=== PATIENT | female | born 2000 | race Caucasian/White ===

== ENCOUNTER 2022-12-05 09:35 | Observation (INO) ==
--- NOTE | 2022-11-28 14:07 | Anesthesiology Consultation ---
Date of Service November 28, 2022 Assessment & Plan (1) Encounter for pre-operative examination: Chart Review Chart Review: Acceptable Risk for Surgery and Patient NOT seen in Pre Admission Testing - Check test AM DOS (per nursing assessment- patient with mullerian agenesis - will leave to anesthesiologist discretion if preg test needs cancelled DOS) - Aprepitant ordered by surgeon- patient taking prior to arrival to hospital on DOS -COVID screening: Per PAT nursing assessment on 11/28/22. Pt with congestion and runny nose- tested negative for Covid 11/20/22. Symptoms as of 11/28/22 significantly improved. No known COVID-19 positive contacts or current COVID-19 related symptoms. Travel screen negative. Patient is NOT vaccinated for Covid. At surgeon discretion if preop Covid testing being done. From anesthesia perspective, Covid test NOT needed prior to surgery secondary to patient being done as outpatient (surgery will be at least 15 days from symptom onset, pt tested Covid negative at work 11/20/22, and symptoms improved) History Surgery Operation Date: 12/05/22 11:30 Proposed Procedures p Bilateral Breast Reduction - Jayne Cisneros MD Height/Weight Height: 5 ft 3 in Weight: 90.265 kg Allergies Allergy/AdvReac Type Severity Reaction Status Date / Time No Known Allergies Allergy Verified 11/28/22 12:46 Medications Home Medications Medication Instructions Recorded Confirmed Last Taken aprepitant 40 mg capsule 40 mg PO DAILY 1 day #1 cap 11/24/22 11/28/22 Unknown oxycodone-acetaminophen 5 mg-325 1 tab PO Q4H PRN pain 3 days #18 11/24/22 11/28/22 Unknown mg tablet (Percocet) tabs Past Medical History Medical History Hx of gastroesophageal reflux (GERD) has only taken OTC meds prn-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
[~2022-12-05 09:35] MED LIST: ACETAMINOPHEN 1000 MG/100 ML IV IV ONE; FAMOTIDINE/PF 20 MG/2 ML VIAL IV ONE; LACTATED RINGER'S 1,000 ML IV SCH; ceFAZolin 2000MG 2,000 MG/15 ML SYR IV SCH
[2022-12-05] MEDS ORDERED: MIDAZOLAM HCL 1 MG/ML 2ML VIAL ONE (09:44)
[2022-12-05] MEDS ORDERED: ROCURONIUM BROMIDE 10 MG/ML 5 ML VIAL IV ONE ×2 (09:45→13:32)
[2022-12-05] MEDS ORDERED: ONDANSETRON INJ 2 MG/ML 2 ML VIAL ONE (09:45)
[2022-12-05] MEDS ORDERED: PROPOFOL IV EMULSION 10 MG/ML 20 ML VIAL IV ONE (09:45)
[2022-12-05] MEDS ORDERED: fentaNYL citrate PF 100 MCG/2 ML VIAL ONE ×2 (09:45→14:15)
[2022-12-05] MEDS ORDERED: METOCLOPRAMIDE HCL INJ 5 MG/ML 2 ML VIAL ONE (09:45)
[2022-12-05] MEDS ORDERED: DEXAMETHASONE SOD INJ 4 MG/ML VIAL ONE ×2 (09:45→12:36)
[2022-12-05] MEDS ORDERED: LIDOCAINE 2% MPF LOCAL 5 ML VIAL ONE (09:45)
--- NOTE | 2022-12-05 11:47 | History & Physical Bridge Note ---
Date of Service December 05, 2022 History & Physical Bridge Note I have examined the patient, reviewed the History & Physical and in the interval since the performance of the History & Physical I have noted the following changes of clinical significance: URI symptoms resolved. Would like to stay overnight, will order covid test
[2022-12-05] MEDS ORDERED: LIDOCAINE/EPINEPHRINE 1% 20 ML VIAL ONE (11:59)
[2022-12-05] MEDS ORDERED: BUPIVACAINE 0.25% PF 30 ML VIAL ONE (11:59)
[2022-12-05] MEDS ORDERED: HYDROmorphone INJ 1 MG/ML SYRINGE ONE (12:41)
[2022-12-05] MEDS ORDERED: ATROPINE SULFATE 0.1 MG/ML 10ML SYR IV PRN (12:47)
[2022-12-05] MEDS ORDERED: HYDROmorphone INJ 2 MG/ML SYR/VIAL IV PRN (12:47)
[2022-12-05] MEDS ORDERED: fentaNYL citrate PF 100 MCG/2 ML VIAL IV PRN (12:47)
[2022-12-05] MEDS ORDERED: ePHEDrine sulfate 50 MG/ML AMP IV PRN (12:47)
[2022-12-05] MEDS ORDERED: PROMETHAZINE HCL 6.25 MG in SODIUM CHLORIDE 0.9% 50 ML IV PRN (12:47)
[2022-12-05] MEDS ORDERED: ONDANSETRON INJ 2 MG/ML 2 ML VIAL IV PRN ×2 (12:47→17:08)
[2022-12-05] MEDS ORDERED: ePHEDrine sulfate 50 MG/ML SYR ONE (12:51)
[2022-12-05] MEDS ORDERED: NEOSTIGMINE METHYLSULFATE 1 MG/ML 10ML VIAL ONE (14:50)
[2022-12-05] MEDS ORDERED: GLYCOPYRROLATE 0.2 MG/ML VIAL ONE (14:50)
--- NOTE | 2022-12-05 15:38 | Post Operative Brief Note ---
PG Immediate Post Op with CF Date of Surgery December 05, 2022 Pre & Post Diagnosis Operation Date: 12/05/22 11:30 Pre-Op Diagnosis: Macromastia Post-Op Diagnosis: Macromastia I identified the patient and participated in the time-out.: Yes Procedure Operation Date: 12/05/22 11:30 Actual Procedures p Bilateral Breast Reduction(Bilateral) - Jayne Cisneros MD Surgeon Jayne Cisneros MD Stylist Assistant Olga Morales PA-C Estimated Blood Loss 25 Findings Consistent with Post-Op Diagnosis Specimens Specimen Description: A. Left breast tissue (Weight in grams: 652) B. Right breast tissue (Weight in grams: 638) Drains Ángel-Barreto Drain (Two 14 citizen of [place] Ángel-Barreto drains inserted into bilateral chest during procedure by Dr. Cisneros)
--- NOTE | 2022-12-05 15:47 | Operative Report ---
PG Post Operative Report Pre & Post Diagnosis Operation Date: 12/05/22 11:30 Pre-Op Diagnosis: Macromastia Post-Op Diagnosis: Macromastia I identified the patient and participated in the time-out.: Yes Procedure Operation Date: 12/05/22 11:30 Actual Procedures p Bilateral Breast Reduction(Bilateral) - Jayne Cisneros MD Surgeon Jayne Cisneros MD Repairer Hairspring Olga Morales PA-C Estimated Blood Loss 25 Findings Consistent with Post-Op Diagnosis Specimens left breast 652 grams, right breast 638 grams Drains EJ x2 Anesthesia Type General Complications none Indications back, neck and bilateral shoulder pain secondary to macromastia Description of Procedure The risks, benefits, and alternatives of the procedure were explained to the patient who agreed and signed consent. She was identified and marked in the preoperative holding area. She was brought to the operating room where she was positioned supine and placed under general anesthesia without incident. Surgical site was prepped and draped sterilely. A time-out procedure was performed. I began with the left side. Markings were reassessed and a 7 cm pedicle was marked. 1% lidocaine with epinephrine was used to anesthetize the planned incisions. A 38 mm cookie cutter was used to circumscribe the nipple-areolar complex. The previously marked 7 cm pedicle was incised using a 15 blade scalpel and deepithelialized. I began with the medial dissection of the pedicle using the plasmablade. Cautery was used to incise through dermis and breast parenchyma down to the chest wall, taking care not to undermine the pedicle during dissection. A similar procedure was undertaken on the lateral aspect of the pedicle again taking care not to undermine. Lastly, the pedicle was dissected out superiorly using the plasmablade and this was carried down to the chest wall as well. I then began with excision of the medial breast tissue followed by lateral aspect of the breast tissue and surrounding keyhole incision. A 15 blade scalpel was used to make the inframammary fold incision and the plasmablade was used to deepen the incision through dermis and breast parenchyma. Dissection was then carried superiorly to the level of the superior incision. Superior incision was then incised using a 15 blade scalpel and again dissected using the plasmablade. This was undertaken laterally and then around the keyhole portion of the incision. Care was taken to leave some fat on the lateral pectoralis fascia in order to protect the T4 intercostal nerve. Hemostasis was achieved with electrocautery. The specimen was passed off in its entirety for weighing. Additional resection was undertaken from the superior flap in order to facilitate closure of the breast and to provide the best shape. The total resection weight of the left breast was 652 grams. The wound was irrigated with saline and hemostasis was achieved with electrocautery. 0.25% Marcaine plain was used to anesthetize the incisions as well as the pectoralis fascia. A 15 Romanian Eduin drain was brought out through a separate stab incision. The nipple-areolar complex was brought into the keyhole using 2-0 Vicryl deep dermal suture. The wound was closed first in a lateral to mid breast direction and then medial to mid breast direction using 2-0 Vicryl deep dermal sutures. Vertical limb was also approximated using 2-0 Vicryl deep dermals and the nipple-areolar complex was inset using 2-0 Vicryl deep dermal sutures. Next, the superficial dermal layer was closed using 2-0 PDO running Quill suture along the inframammary fold and 3-0 PDS interrupted dermal sutures along the vertical limb and nipple- areolar complex. Lastly 3-0 Monocryl running subcuticular suture was placed. A similar procedure was undertaken on the right side with maximal excision weight of 638 grams. Breasts were symmetric and nipple-areolar complexes were viable bilaterally following wound closure. Dermabond Prineo was applied along the inframammary fold and vertical limb and Dermabond was placed around the nipple-areolar complex. Dry dressings and a surgical bra were placed. The patient was awakened and transferred to recovery room in satisfactory condition. Olga Morales PA-C was present and scrubbed throughout the procedure and was instrumental in providing retraction during dissection of the pedicle and assisting in wound closure. I attest to the content of the Intraoperative Record and any orders documented therein. Any exceptions are noted below.
--- NOTE | 2022-12-05 16:26 | Anesthesiology Progress Note ---
Date of Service December 05, 2022 Anesthesia Post Procedure Vital Signs Vital Signs: Temp Pulse Pulse Resp BP Pulse Ox O2 Del Method 12/05/22 16:10 80 17 122/70 100 Oxymask 12/05/22 16:20 75 18 124/72 99 Oxymask 12/05/22 16:00 95 H 15 120/78 100 Oxymask 12/05/22 15:51 36.1 C L 104 H 14 104/82 100 Oxymask 12/05/22 10:06 36.9 C 78 20 135/74 98 Room Air O2 Flow Rate 12/05/22 16:10 3 12/05/22 16:20 3 12/05/22 16:00 5 12/05/22 15:51 7 12/05/22 10:06 Transfer of Care Handoff Completed per policy Notes Mental Status: alert / awake / arousable Patient Amnestic to Procedure: Yes Nausea / Vomiting: adequately controlled Pain: adequately controlled Airway Patency, RR, SpO2: stable & adequate BP & HR: stable & adequate Hydration State: stable & adequate Anesthetic Complications: no major complications apparent
[2022-12-05] MEDS ORDERED: diphenhydrAMINE Capsule 25 MG CAP PO PRN (17:08)
[2022-12-05] MEDS ORDERED: MoRPHine SULFATE 2 MG/ML CARP IV PRN (17:08)
[2022-12-05] MEDS ORDERED: diphenhydrAMINE 50 MG/ML VIAL IV PRN (17:08)
[2022-12-05] MEDS ORDERED: LORazepam 0.5 MG TAB PO PRN (17:08)
[2022-12-05] MEDS ORDERED: ACETAMINOPHEN 325 MG TAB PO PRN (17:08)
[2022-12-05] MEDS ORDERED: PROMETHAZINE HCL 12.5 MG in SODIUM CHLORIDE 0.9% 50 ML IV PRN (17:08)
[2022-12-05] MEDS ORDERED: MoRPHine SULFATE 4 MG/ML 1 ML CARP\\VIAL IV PRN (17:08)
[2022-12-05] MEDS ORDERED: oxyCODONE/ACETAMINOPHEN 5mg/325mg TAB PO PRN (17:08)
[2022-12-05] MEDS: D5W AND 1/2NSS + 20MEQ KCL 20 MEQ/1,000 ML BAG IV SCH (17:58)
[2022-12-05] MEDS: oxyCODONE/ACETAMINOPHEN 5mg/325mg TAB PO PRN (18:18)
[2022-12-05] MEDS: ceFAZolin 2000MG 2,000 MG/15 ML SYR IV SCH (19:48)
[2022-12-06] MEDS: ceFAZolin 2000MG 2,000 MG/15 ML SYR IV SCH (04:27)
--- NOTE | 2022-12-06 08:22 | Surgery Progress Note ---
Date of Service December 06, 2022 Assessment & Plan (1) Status post breast reduction: Plan: Doing well. Drains removed. d/c home today with office follow-up tomorrow. Admission and Anticipated Discharge Date Admission Date: December 05, 2022 Subjective Patient is resting comfortable in bed. Pain well controlled. Tolerating a regular diet and ambulating. She has been able to void. Physical Exam Physical Exam: drains with serosang output- removed. nipples pink, viable, sensate Results & Data Vital Signs (Past 12 Hours) Vital Signs Temp Pulse Resp BP Pulse Ox O2 Del Method 12/06/22 07:26 37.2 C 86 18 117/66 99 Room Air 12/06/22 04:04 36.9 C 71 14 118/75 99 Room Air 12/05/22 23:40 36.7 C 70 16 119/74 97 Room Air 12/05/22 21:04 36.8 C 80 16 110/74 100 Room Air PG Care Time/CCT Total # of Minutes Spent Total Time Spent with Patient: Total time spent is greater than 50% in coordination of care (as documented) at patient's floor/unit and/or counseling patient: Coding Level of Care Code 63731 Post Operative Follow-Up Diagnoses Status post breast reduction Z98.890
[2022-12-06] MEDS: D5W AND 1/2NSS + 20MEQ KCL 20 MEQ/1,000 ML BAG IV SCH (08:45)
[2022-12-06] MEDS ORDERED: MULTIVITAMIN TAB PO SCH (09:00)
[2022-12-06] MEDS: oxyCODONE/ACETAMINOPHEN 5mg/325mg TAB PO PRN (09:22)
--- NOTE | 2022-12-08 10:17 | Discharge Summary ---
Date of Service December 08, 2022 Admission HPI Per Admitting Provider History of symptomatic macromastia. See admission H&P. Admission Exam Per Admitting Provider macromastia. See admission H&P Principal Diagnosis Macromastia Discharge Exam drains with serosang output- removed. nipples pink, viable, sensate Discharge Data Allergies Allergy/AdvReac Type Severity Reaction Status Date / Time No Known Allergies Allergy Verified 12/05/22 10:08 Procedures Performed Operation Date: 12/05/22 11:30 Actual Procedures p Bilateral Breast Reduction(Bilateral) - Jayne Cisneros MD Hospital Course (1) Status post breast reduction: Patient presented to [facility] with history of symptomatic macromastia. She was taken to the OR and underwent bilateral breast reduction. There were no intraoperative complications. She was taken to recovery and transferred to med/surg for observation. On POD#1, she was feeling well. She was tolerating a regular diet and ambulating. On exam, her vitals were stable. Her incisions were CDI and nipples viable. Her drains were removed. She was discharged home with instructions to follow-up in the office in one day. Total Time Total Time Spent Total Time Spent (In Minutes): 15 Total Time Includes: Examination of the Patient, Medication Reconciliation and Communication With Other Providers Discharge Plan Discharge Items Patient Disposition: Home - Self-Care Reason For Visit: POST OP Discharge Diagnosis: s/p bilateral breast reduction Activity: As commented below Non-emergency contact: Surgeon Call non-emergency contact if: you have any medication questions, your pain is not controlled and you have a fever Follow-up/Referrals: Olga Morales PA-C [Physician Hat Binder] - Marvin Sandoval DO [Primary Care Provider] - Diet: Regular Addtl Attending Provider Instructions: ACTIVITY RECOMMENDATIONS: __Normal activities __No bending, lifting or straining __No driving __Driving allowed when you are off pain medications __Walking permitted __You should have help at home for ___ days DRESSINGS: __No dressings required _x_Keep dressings dry/in place until first office visit. Keep bra on at all times __Remove dressings ___ and leave dressings off __Apply ice ___ days __Remove dressings and reapply garment __Apply antibiotic ointment (Bacitracin, Neosporin, etc) to wounds 3-4 times/day for 10 days BATHING: _x_Keep dressings dry _x_Sponge bathing permitted away from incisions/surgical dressings __Showering permitted _x_No swimming, hot tubs or soaking in a tub MEDICATIONS: Resume previous medications unless instructed otherwise by your surgeon. _x_Do not use aspirin, Motrin, Advil or Ibuprofen as these may promote bleeding. Please use Tylenol. _x_Prescription(s) provided: pain medication was provided at your last office visit OTHER INSTRUCTIONS: __Record drain output 2-3 times per day SPECIAL CARE INSTRUCTIONS: * It is normal to have a mild fever after surgery. If your temperature is higher than 101.5 degrees F, please call the office at [phone]. * Constipation is a typical side effect of pain medication. An [id number] stool softener will help relieve this. * Leaking around surgical drains may occur and should not cause concern. Sometimes these drains become clogged. If this happens, remove the bulb and milk the clot out of the tube, then replace the bulb. * Drainage from wounds after liposuction is normal and should be expected. Garments will become soiled. You should protect furniture and bedding. This drainage should mostly subside within 2-3 days. Leave garments in place unless instructed to remove them. * If you have unusual drainage from a wound or are concerned you have an infection or have any questions or concerns, please call the office at [phone]. FOLLOW UP VISIT: If not already scheduled, please call the office, , when you return home after surgery to schedule an appointment to be seen in _1__ days. Pending Studies at Discharge: Yes Studies:: pathology Stand-Alone Forms: [facility] [employer], Smoking Cessation Medications and DC Order Prescriptions: Continued oxycodone-acetaminophen [Percocet] 5-325 mg tablet 1 tab PO Q4H PRN (Reason: pain) 3 Days Qty: 18 0RF Rx Instructions: Initial therapy. Discontinued aprepitant 40 mg capsule 40 mg PO DAILY 1 Days Qty: 1 0RF Rx Instructions: Take capsule 30 minutes before arriving to the main hospital. Discharge Orders: Discharge Order (Routine); Ordered 04/04/23 Ordered By: Olga Tomas/Other Patient Handouts: Breast Reduction Surgery Admission Data Admit Date/Time: 12/05/22 15:45 Attending Provider: Jayne Cisneros Admit Provider: Jayne Cisneros Primary Care Provider: Marvin Sandoval Other Interventions: Discharge Summary Assessment (RN) Last Done: 12/06/22 10:05 Coding Level of Care Code 94187 OBS Care - Discharge Diagnoses Status post breast reduction Z98.890
== END 2022-12-06 12:32 | disposition home or self-care (01) ==
LOC: 3W 09:35 → ASU 09:35